=== PATIENT | male | born 1970 | race Caucasian/White ===

== ENCOUNTER 2017-04-17 00:14 | Emergency (ER) | payer SELFPAY ==
[2017-04-17 00:37] LABS: BASOPHILS 0.3 % (0-2); EOSINOPHILS 0.9 % (0-7); HEMATOCRIT 41.5 % (42.0-54.0); HEMOGLOBIN 14.4 g/dL (13.5-17.5); IMMATURE GRANULOCYTES 0.4 % (0-5); LYMPHOCYTES 12.1 % (15-50); MCH 31.5 pg (26.0-34.0); MCHC 34.7 g/dL (31.0-37.0); MCV 90.8 fL (80.0-100.0); MEAN PLATELET VOLUME 10.6 fL (7.4-10.4); MONOCYTES 4.7 % (2-11); NEUTROPHILS 81.6 % (40-80); PLATELET COUNT 205 10x3/uL (130-400); RBC 4.57 10x6/uL (4.20-6.10); RDW 12.9 % (11.5-14.5); WBC 11.3 10x3/uL (4.8-10.8)
[2017-04-17 00:50] LABS: ALBUMIN 4.3 g/dL (3.4-5.0); ALKALINE PHOSPHATASE 70 U/L (46-116); ALT (SGPT) 29 U/L (10-68); CALC OSMOLALITY 284 mosm/kg (275-300); CALCIUM 9.4 mg/dL (8.5-10.1); CARBON DIOXIDE 26.3 mmol/L (21.0-32.0); CHLORIDE - SERUM 105 mmol/L (98-107); CREATININE - SERUM 1.3 mg/dL (0.6-1.3); GLUCOSE 135 mg/dL (74-106); PROTEIN - SERUM 7.8 g/dL (6.4-8.2); SODIUM 140 mmol/L (136-145); UREA NITROGEN 23 mg/dL (7-18); eGFR NON AFRICAN AMERICAN 63 mL/min (90-120)
[2017-04-17 01:01] LABS: AMYLASE - SERUM 69 U/L (25-115); CHOL - HDL RATIO 5.8 ratio (2.3-4.9); CHOLESTEROL, TOTAL 279 mg/dL (0-200); CKMB 1.5 U/L (0.0-3.6); CREATINE KINASE 251 UL (21-232); HDL CHOLESTEROL 48 mg/dL (32-96); LDL CHOLESTEROL 207 mg/dL (0-100); LDL-HDL RATIO 4.3 ratio (1.5-3.5); LIPASE 167 U/L (73-393); TRIGLYCERIDE 123 mg/dL (30-200); TROPONIN-I < 0.017 ng/mL (0.000-0.060)
== END 2017-04-17 02:17 | disposition home or self-care (01) ==
LOC: D.ER 00:14
PROVIDERS: Family Medicine
DX: R07.9 Chest pain, unspecified (principal)